=== PATIENT | female | born 1995 | race Caucasian/White ===

== ENCOUNTER 2017-07-30 11:58 | Emergency (ER) | payer OTHER ==
[~2017-07-30] VITALS: Wt 56.7 kg
[2017-07-30] MEDS ORDERED: ALPRAZOLAM 1 MG TAB PO ONE (13:00)
[2017-07-30] MEDS ORDERED: ALPR1TAB2 PO (13:54)
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
== END 2017-07-30 14:34 | disposition home or self-care (01) ==
LOC: FTE 11:58
DX: F41.9 Anxiety disorder, unspecified (principal); T59.811A Toxic effect of smoke, accidental (unintentional), initial encounter
CPT/HCPCS: Z7502; Z7610; 99283

== ENCOUNTER 2017-09-06 16:28 | Emergency (ER) | payer OTHER ==
[~2017-09-06] VITALS: Ht 170.2 cm; Wt 55.7 kg
[~2017-09-06 16:28] MED LIST: ALPR1TAB2 PO
[2017-09-06 16:54] VITALS: Ht 170.2 cm; Wt 55.7 kg
[2017-09-06] MEDS ORDERED: LORAZEPAM 0.5 MG TAB PO ONE (20:30)
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
== END 2017-09-06 21:30 | disposition left against medical advice (07) ==
LOC: FTE 16:28
DX: F41.9 Anxiety disorder, unspecified (principal)
CPT/HCPCS: Z7502; Z7610; 99283

== ENCOUNTER 2018-04-19 11:57 | Emergency (ER) | END 2018-04-19 14:26 | disposition left against medical advice (07) ==